=== PATIENT | male | born 1975 | race Hispanic/Latino ===

== ENCOUNTER 2025-05-21 10:38 | Emergency (ER) | payer BC ==
[~2025-05-21] VITALS: Ht 162.6 cm; Wt 107.5 kg
[2025-05-21] MEDS ORDERED: OZEMPIC1 MG/0.71 (12:36)
[2025-05-21] MEDS ORDERED: LOSARTAN POTASS25 MG PO (12:36)
[2025-05-21] MEDS ORDERED: ATORVASTATIN CA40 MG PO (12:36)
[2025-05-21] MEDS ORDERED: ACETAMINOPHEN-1 EAC4 PO (13:05)
[2025-05-21] MEDS ORDERED: CEPHALEXIN500 MG PO (13:05)
[2025-05-21 13:19] VITALS: PULSE 67; RESP 18; TEMP 97.9; O2SAT 100
== END 2025-05-21 13:19 | disposition home or self-care (01) ==
LOC: FSED 11:47
DX: S63.696A Other sprain of right little finger, initial encounter (principal); M25.441 Effusion, right hand; X58.XXXA Exposure to other specified factors, initial encounter; Y92.89 Other specified places as the place of occurrence of the external cause; F17.210 Nicotine dependence, cigarettes, uncomplicated
CPT/HCPCS: 99283